=== PATIENT | female | born 1970 | race Caucasian/White ===

== ENCOUNTER 2021-07-29 08:06 | Inpatient (IN) | payer OTHER ==
[~2021-07-29] VITALS: Ht 165.1 cm; Wt 51.4 kg
[2021-07-29 10:10] LABS: BASOPHILS % 0.2 % (0.0-2.0); EOSINOPHILS % 0.3 % (0.0-5.0); HEMATOCRIT. 37.5 % (36.0-48.0); HEMOGLOBIN. 12.7 g/dL (12.0-16.0); LYMPHOCYTES % 9.7 % (20.0-50.0); MEAN CORPUSCULAR HEMOGLOBIN 29.7 pg (28.0-32.0); MEAN CORPUSCULAR VOLUME 87.8 fL (81.0-99.0); MEAN PLATELET VOLUME 8.7 fl (7.4-10.4); MONOCYTES % 4.6 % (2.0-8.0); NEUTROPHILS % 85.2 % (40.0-76.0); PLATELET 304 x1000/uL (130-400); RED BLOOD CELL COUNT 4.28 mill/uL (4.2-5.4); RED CELL DISTRIBUTION WIDTH 17.4 % (11.6-14.6)
[2021-07-29 10:12] LABS: CHLORIDE 96 mEq/L (98-107)
[2021-07-29 10:17] LABS: ETHANOL BLOOD < 10 mg/dL
[2021-07-29 10:21] LABS: HCG SCREEN NEGATIVE
[2021-07-29] MEDS ORDERED: CALCIUM CHLORIDE 1GM/10ML SYR IV ONE (10:45)
[2021-07-29 11:00] LABS: HEPATITIS B SURFACE AB 18.4 mIU/mL
[2021-07-29 11:11] LABS: HEPATITIS B SURFACE ANTIGEN NEGATIVE
[2021-07-29] MEDS ORDERED: NALOXONE HCL 0.4MG/ML VIAL IV PRN (14:00)
[2021-07-29] MEDS ORDERED: ONDANSETRON HCL 4MG/2ML INJ IV PRN (14:00)
[2021-07-29] MEDS ORDERED: GUAIFENESIN 200MG/10ML SUGAR FREE UDC PO PRN (14:00)
[2021-07-29] MEDS ORDERED: HYDROCODONE/ACETAMINOPHEN 5/325MG TABLET PO PRN (14:00)
[2021-07-29] MEDS ORDERED: DIPHENHYDRAMINE 50MG/ML VIAL IV PRN (14:00)
[2021-07-29] MEDS ORDERED: DOCUSATE SODIUM 100MG CAPSULE PO PRN (14:00)
[2021-07-29] MEDS ORDERED: ACETAMINOPHEN 325MG TABLET PO PRN (14:00)
[2021-07-29] MEDS ORDERED: MAGNESIUM/ALUMINUM HYDROXIDE/SIMETHICONE 30ML UDC PO PRN (14:00)
[2021-07-29] MEDS ORDERED: DEXTROSE 50% WATER 50ML SYRINGE IV NR ×2 (14:45→20:15)
[2021-07-29] MEDS ORDERED: FUROSEMIDE 100MG/10ML VIAL IVP NR (14:45)
[2021-07-29] MEDS ORDERED: SODIUM POLYSTYRENE SULFONATE 15 G/60 ML BOT PO NR (14:45)
[2021-07-29] MEDS ORDERED: INSULIN REGULAR (HUMULIN R) 300UNITS/3ML VIAL IV NR (14:45)
[2021-07-29] MEDS: CLONIDINE 0.1MG TABLET PO PRN (18:46)
[2021-07-30 00:30] VITALS: BP 181/80
[2021-07-30 04:00] VITALS: BP 161/75
[2021-07-30] MEDS ORDERED: DEXTROSE 50% WATER 50ML SYRINGE IV PRN (06:45)
[2021-07-30] MEDS: BLOOD SUGAR DIAGNOSTIC STRIP TEST SCH ×2 (06:49→12:23)
[2021-07-30] MEDS: INSULIN LISPRO 100 UNITS/ML SUBCUT SCH ×2 (07:50→12:23)
[2021-07-30 08:00] VITALS: BP 182/74
[2021-07-30 08:17] LABS: BASOPHILS % 0.9 % (0.0-2.0); EOSINOPHILS % 1.8 % (0.0-5.0); HEMATOCRIT. 33.3 % (36.0-48.0); HEMOGLOBIN. 11.2 g/dL (12.0-16.0); LYMPHOCYTES % 24.5 % (20.0-50.0); MONOCYTES % 10.8 % (2.0-8.0); PLATELET 274 x1000/uL (130-400); RED BLOOD CELL COUNT 3.74 mill/uL (4.2-5.4); RED CELL DISTRIBUTION WIDTH 17.1 % (11.6-14.6)
[2021-07-30 08:51] LABS: PHOSPHORUS 5.9 mg/dL (2.5-4.9)
[2021-07-30] MEDS: CLONIDINE 0.1MG TABLET PO PRN (09:20)
[2021-07-30] MEDS ORDERED: AMLODIPINE 10MG TABLET PO SCH (10:30)
[2021-07-30 12:00] VITALS: BP 170/67
[2021-07-30 12:34] VITALS: BP 161/60
== END 2021-07-30 17:23 | disposition home or self-care (01) | DRG 52 ==
LOC: ER 08:18 → MICUSO 11:42 → CANRESERV 19:36 → ENRESERV 19:36 → 6WST 22:59
PROVIDERS: ADMIT Hospitalist; ATTEND Hospitalist
PROC: 5A1D70Z Performance of Urinary Filtration, Intermittent, Less than 6 Hours Per Day (ICD-10-PCS; principal; 2021-07-29)
DX: G93.40 Encephalopathy, unspecified (principal); I50.33 Acute on chronic diastolic (congestive) heart failure; E11.649 Type 2 diabetes mellitus with hypoglycemia without coma; N18.6 End stage renal disease; N25.81 Secondary hyperparathyroidism of renal origin; E78.5 Hyperlipidemia, unspecified; E11.22 Type 2 diabetes mellitus with diabetic chronic kidney disease; D64.9 Anemia, unspecified; I13.2 Hypertensive heart and chronic kidney disease with heart failure and with stage 5 chronic kidney disease, or end stage renal disease; E87.5 Hyperkalemia; Z20.822 Contact with and (suspected) exposure to COVID-19; H54.7 Unspecified visual loss; Z82.49 Family history of ischemic heart disease and other diseases of the circulatory system; Z83.3 Family history of diabetes mellitus; Z99.2 Dependence on renal dialysis
CPT/HCPCS: 36415; 71045; 80048; 80053; 80061; 80320; 82962; 83036; 83735; 84100; 84443; 84484; 84703; 85025; 86705; 86706; 86709; 86803; 87340; 87426; 93005; 93970; 99285; J1815; J1940; J3490; G0480